=== PATIENT | male | born 1970 | race Caucasian/White ===

== ENCOUNTER 2017-09-20 06:19 | Day surgery (SDC) | payer OTHER ==
[2017-09-20] MEDS ORDERED: DEXTROSE 5%-0.45% NACL 1,000 ML IV (07:00)
[2017-09-20] MEDS ORDERED: AMPICILLIN/SULB 3 GM/NS (PMX) 100 ML IVPB (07:00)
[2017-09-20 07:40] LABS: ADD MAN DIFF? NO
[2017-09-20 07:45] LABS: WHITE BLOOD COUNT 6.3 10^3/ul (4.8-10.8)
[2017-09-20 07:46] LABS: BASOPHIL # 0.1 10^3/ul (0.0-0.1); BASOPHILS % 0.8 % (0.0-2.0); EOSINOPHILS # 0.2 10^3/ul (0.0-0.5); EOSINOPHILS % 3.3 % (0.0-7.0); HEMOGLOBIN 14.3 g/dl (14.0-18.0); LYMPHOCYTES # 1.6 10^3/ul (0.8-2.9); LYMPHOCYTES % 26.2 % (15.0-51.0); MEAN CORPUSCULAR HEMOGLOBIN 30.6 pg (29.0-33.0); MEAN CORPUSCULAR HGB CONC 34.9 g/dl (32.0-37.0); MEAN CORPUSCULAR VOLUME 87.6 fl (82.0-101.0); MEAN PLATELET VOLUME 10.5 fl (7.4-10.4); MONOCYTE # 0.7 10^3/ul (0.3-0.9); MONOCYTES % 11.8 % (0.0-11.0); NEUTROPHIL # 3.6 10^3/ul (1.6-7.5); NEUTROPHILS % 57.7 % (39.0-77.0); PLATELET COUNT 161 10^3/UL (140-415); RED BLOOD COUNT 4.68 10^6/ul (4.70-6.10); RED CELL DISTRIBUTION WIDTH 12.8 % (11.5-14.5)
[2017-09-20 08:03] LABS: ALANINE AMINOTRANSFERASE 33 IU/L (13-69); ALBUMIN 4.3 g/dl (3.3-4.9); ALBUMIN/GLOBULIN RATIO 1.43; ALKALINE PHOSPHATASE 55 IU/L (42-121); ASPARTATE AMINO TRANSFERASE 21 IU/L (15-46); BILIRUBIN,INDIRECT 0.9 mg/dl (0-1.1); BILIRUBIN,TOTAL 0.9 mg/dl (0.2-1.3); CHLORIDE 99 mmol/L (97-110); GLUCOSE 97 mg/dl (70-220); TOTAL PROTEIN 7.3 g/dl (6.1-8.1)
[2017-09-20 08:05] LABS: ANION GAP 16 (8-16); CARBON DIOXIDE 33 mmol/L (21-31)
[2017-09-20 08:06] LABS: INR 0.95; PARTIAL THROMBOPLASTIN TIME 26.8 Sec (25.0-35.0); PROTIME 12.8 Sec (11.9-14.9)
[2017-09-20 08:07] LABS: BLOOD UREA NITROGEN 15 mg/dl (7-20); CREATININE 0.76 mg/dl (0.61-1.24); POTASSIUM 3.5 mmol/L (3.5-5.1); SODIUM 144 mmol/L (135-144)
[2017-09-20] MEDS ORDERED: BUPIVACAINE 0.5% (SDV) 30 ML INJ (08:51)
[2017-09-20] MEDS ORDERED: LIDOCAINE 1% (MPF) 30 ML INJ (08:51)
[2017-09-20] MEDS ORDERED: ONDANSETRON 4 MG INJ (09:10)
[2017-09-20] MEDS ORDERED: FENTAnyl 50 MCG/ML VIAL (09:10)
[2017-09-20] MEDS ORDERED: MIDAZOLAM 1 MG/ML 2 ML INJ (09:10)
[2017-09-20] MEDS ORDERED: SUCCINYLCHOLINE CHLORIDE 100 MG/5 ML SYG IV (09:10)
[2017-09-20] MEDS ORDERED: PROPOFOL 20 ML (09:10)
[2017-09-20] MEDS ORDERED: ROCURONIUM 50 MG INJ (09:10)
[2017-09-20] MEDS ORDERED: CEFAZOLIN 1 GM INJ ×2 (09:24)
[2017-09-20] MEDS: BUPIVACAINE 0.5%/EPI (SDV) 30 ML INJ INJ (09:43)
[2017-09-20] MEDS ORDERED: IBUPROFEN 600 MG TAB PO (10:00)
[2017-09-20] MEDS ORDERED: ONDANSETRON 4 MG INJ IV (10:00)
== END 2017-09-20 11:30 | disposition home or self-care (01) ==
LOC: SDS 06:19
DX: K64.0 First degree hemorrhoids (principal); K61.0 Anal abscess
CPT/HCPCS: 45330; 80053; 85025; 85610; 85730; 86850; 86900; 86901